=== PATIENT | male | born 1970 | race Hispanic/Latino ===

== ENCOUNTER 2022-02-08 18:02 | Emergency (ER) | payer OTHER ==
--- NOTE | 2022-02-08 11:45 | Emergency Department Report ---
ED Abdominal Pain HPI - General Chief Complaint: Abdominal Pain Stated Complaint: DR CHRISTIANSON Time Seen by Provider: 02/08/22 11:38 Source: patient Mode of arrival: Ambulatory Limitations: No Limitations - History of Present Illness Initial Comments: Patient is a 61-year-old male recently diagnosed with obstructing left kidney stone via outside ultrasound and sent here for further evaluation with CT, labs and admission. - Related Data Allergies Allergy/AdvReac Type Severity Reaction Status Date / Time aspirin Allergy Anaphylaxis Verified 02/08/22 11:22 ED Review of Systems ROS: Stated complaint: DR CHRISTIANSON Other details as noted in HPI Constitutional: denies: chills, fever Respiratory: denies: cough, shortness of breath, wheezing Cardiovascular: denies: chest pain, palpitations Gastrointestinal: denies: abdominal pain, nausea, diarrhea Genitourinary: other (Left flank pain) Musculoskeletal: denies: back pain, joint swelling, arthralgia Skin: as per HPI Neurological: as per HPI Psychiatric: denies: anxiety, depression ED Past Medical Hx - Past Medical History Previous Medical History?: Yes Hx Diabetes: Yes Hx Asthma: Yes - Surgical History Past Surgical History?: No ED Physical Exam - General Limitations: No Limitations General appearance: alert, other (Appears uncomfortable) - Head Head exam: Present: atraumatic, normocephalic - Respiratory Respiratory exam: Present: normal lung sounds bilaterally. Absent: respiratory distress - Cardiovascular Cardiovascular Exam: Present: regular rate, normal rhythm, normal heart sounds - GI/Abdominal GI/Abdominal exam: Present: soft. Absent: distended - Rectal Rectal exam: Present: deferred - Neurological Exam Neurological exam: Present: alert, oriented X3 - Psychiatric Psychiatric exam: Present: normal affect, normal mood - Skin Skin exam: Present: warm, dry, intact, normal color ED Course Vital Signs 02/08/22 02/08/22 02/08/22 11:20 12:19 14:23 Temperature 98.7 F 98.8 F 98.6 F Pulse Rate 82 68 69 Respiratory 18 20 20 Rate Blood Pressure 138/90 Blood Pressure 151/87 138/90 136/95 [Left] O2 Sat by Pulse 99 98 98 Oximetry ED Medical Decision Making - Lab Data Result diagrams: 02/08/22 12:02 02/08/22 12:02 - Medical Decision Making CT scan shows 8.6 mm calculus at the left UVJ with moderate hydronephrosis. Urology paged. Patient taken to the OR. Critical care attestation.: If time is entered above; I have spent that time in minutes in the direct care of this critically ill patient, excluding procedure time. ED Disposition Clinical Impression: Urinary tract obstruction by kidney stone Disposition: 09 ADMITTED INPATIENT Is pt being admited?: Yes Condition: Stable Referrals: REHANA CORNEJO MD [Staff Physician] - 7 Days KATY CALIXTO MD [Primary Care Provider] - 7 Days
--- NOTE | 2022-02-08 12:33 | Cat Scan Report ---
CT ABDOMEN AND PELVIS WITHOUT CONTRAST INDICATION / CLINICAL INFORMATION: Abdominal pain radiating to both sides. TECHNIQUE: All CT scans at this location are performed using CT dose reduction for ALARA by means of automated exposure control. COMPARISON: None available. FINDINGS: ABDOMEN: There is an 8.6 mm ovoid calculus at the left ureteropelvic junction. There is moderate left pelvocaliectasis. Moderate perinephric soft tissue stranding is also present on the left. There are a couple of small nonobstructive right renal calculi. I do not identify a renal mass. There are multiple gallstones, the largest of which measures 2.1 cm. There is a 1.4 cm calculus in th e region of the gallbladder neck. The gallbladder is mildly distended without wall thickening or bile duct dilatation. The liver, spleen, pancreas, adrenal glands and bowel demonstrate no significant abnormality. No maria g opathy is present. There are mild atherosclerotic calcifications involving aorta. The lung bases are clear. PELVIS: The prostate gland is mildly enlarged. The distal ureters, urinary bladder and seminal vesicl es are normal. A normal appendix is present and there is no evidence of diverticulitis. No abnormal m ass or fluid collection is seen. There are small bilateral fat-containing inguinal hernias and a tiny fat-containing right periumbilical hernia without complication. No significant osseous abnormality is present. IMPRESSION: 1. 8.6 mm calculus at the left ureteropelvic pelvic junction is causing moderate hydronephrosis and p erinephric soft tissue stranding. 2. Cholelithiasis. There is a 1.4 cm calculus in the region of the gallbladder neck. The gallbladder is mildly distended without wall thickening. It is difficult to exclude acute cholecystitis. Dependin g on clinical findings, gallbladder ultrasound or hepatobiliary scintigraphy may be helpful in furthe r evaluation. Signer Name: Sage Robb MD Signed: 02/08/2022 12:28 PM Workstation Name: [id number]
[2022-02-08 12:44] LABS: Basophils # (Auto) 0.2 K/mm3 (0.0-0.1); Basophils % (Auto) 1.7 % (0.0-1.8); Eosinophils # (Auto) 0.1 K/mm3 (0.0-0.4); Eosinophils % (Auto) 1.1 % (0.0-4.3); Hematocrit 45.6 % (35.5-45.6); Hemoglobin 15.2 gm/dl (11.8-15.2); Lymphocytes # (Auto) 1.1 K/mm3 (1.2-5.4); Lymphocytes % (Auto) 9.2 % (13.4-35.0); Mean Corpuscular HGB Conc 33 % (32-34); Mean Corpuscular Volume 90 fl (84-94); Monocytes # (Auto) 1.3 K/mm3 (0.0-0.8); Monocytes % (Auto) 10.6 % (0.0-7.3); Platelet Count 159 K/mm3 (140-440); Red Blood Count 5.05 M/mm3 (3.65-5.03); Red Cell Distribution Width 13.6 % (13.2-15.2)
[2022-02-08 13:03] LABS: Alanine Aminotransferase 16 units/L (7-56); Albumin 4.6 g/dL (3.9-5); BUN/Creatinine Ratio 12; Blood Urea Nitrogen 13 mg/dL (9-20); Calcium 9.7 mg/dL (8.4-10.2); Hemolysis Index 3
--- NOTE | 2022-02-08 17:01 | Anesthesia Day of Surgery ---
Anesthesia Day of Surgery - Day of Surgery Patient Examined: Yes Patient H&P Reviewed: Yes Patient is NPO: Yes
--- NOTE | 2022-02-08 17:01 | Anesthesia Consultation ---
Anesthesia Consult and Med Hx Date of service: 02/08/22 - Airway Anesthetic Teeth Evaluation: Good ROM Head & Neck: Adequate Mental/Hyoid Distance: Adequate Mallampati Class: Class I Intubation Access Assessment: Good - Pre-Operative Health Status ASA Pre-Surgery Classification: ASA2 Proposed Anesthetic Plan: General - Pulmonary Hx Smoking: No Hx Asthma: Yes (daily maintenance INHs, rare albuterol use) Hx Respiratory Symptoms: No (nasal polyps) - Cardiovascular System Hx Hypertension: No - Central Nervous System CVA: No - Endocrine Hx Renal Disease: No (left hydronephrosis 2/2 renal calculus, normal renal function) Hx Liver Disease: No Hx Non-Insulin Dependent Diabetes: Yes Hx Thyroid Disease: No - Additional Comments Anesthesia Medical History Comments: Hx anesthetic awareness with "all prior surgeries."
--- NOTE | 2022-02-08 17:10 | Post Operative Note ---
Date of procedure: 02/08/22 Pre-op diagnosis: left upj stone Post-op diagnosis: same Findings: upj stone Procedure: cysto rpg stent Anesthesia: GETA Surgeon: REHANA CORNEJO Estimated blood loss: none Pathology: none Condition: stable Disposition: PACU
--- NOTE | 2022-02-08 17:11 | Discharge Summary ---
Short Stay Discharge Plan Activity: other (no straining ) Weight Bearing Status: Full Weight Bearing Diet: low fat, low cholesterol, low salt Special Instructions: other (inc fluids ) Durable Medical Equipment Needed Upon Discharge: other (has j stent ) Follow up with: KATY CALIXTO MD [Primary Care Provider] - 7 Days REHANA CORNEJO MD [Staff Physician] - 7 Days
[~2022-02-08 18:02] MED LIST: HYDROcodone/ACETAMINOPHEN 5-325 MG TAB PO NR; HYDROmorphone 0.5 MG/0.5 ML INJ IV PRN; IOHEXOL 300 MG/ML 50ML IV ONE; LIDOCAINE MPF (2%) 20 MG/1 ML VIAL 5 ML ONE; MIDAZOLAM 2 MG/2 ML INJ ONE; MORPHINE 4 MG/1 ML INJ IV ONE; ONDANSETRON 4 MG/2 ML INJ IV NR; ONDANSETRON 4 MG/2 ML INJ IV ONE; ONDANSETRON 4 MG/2 ML INJ ONE; PHENYLEPHRINE/NS 1,000 MCG/10 ML SYRINGE (OR USE) IV ONE; SODIUM CHLORIDE 0.9% 1000 ML 1,000 ML IV ONE; SODIUM CHLORIDE 0.9% 1000 ML 1,000 ML ONE; WATER FOR IRRIG STERILE 2000 ML IR ONE; ceFAZolin 1 GM VIAL ONE; fentaNYL 100 MCG/2 ML INJ ONE; propofoL 200 MG/20 ML VIAL IV ONE
--- NOTE | 2022-02-08 18:07 | History and Physical Report ---
History of Present Illness Chief complaint: My side is hurting History of present illness: 51 YO Male with DM, Mild Intermittent Asthma, Nephrolithiasis presents to ED for evaluation. Patient reports "my side hurts". Patient states he has experienced left flank pain over the past 2 days with persistent and worsening symptoms over the same timeframe. Patient was seen and evaluated by his urologist and underwent ultrasound which revealed a left-sided kidney stone. Patient transported to [facility] via private vehicle for further care and evaluation of the aforementioned symptoms. The patient was seen and evaluated in the emergency department. All lab and imaging studies reviewed. Patient with CT scan of the abdomen pelvis which revealed obstructive uropathy complicated by hydronephrosis as well as intractable nausea and vomiting. Urology team consulted in ED. Patient taken urgently to operating room for surgical intervention. Patient knowledges nausea, multiple episodes of vomiting. Patient denies fever, chills, chest pain, palpitation, adductive cough, skin rash, recent contact, known exposure to COVID-19. No prior admission for review. No medication listed at time of admission for reconciliation. Advanced care planning conducted in E. Past History Past Medical History: diabetes, hypertension, other (See HPI) Past Surgical History: No surgical history, Other (Reviewed) Social history: . denies: smoking, alcohol abuse, prescription drug abuse Family history: hypertension Medications and Allergies Allergies Allergy/AdvReac Type Severity Reaction Status Date / Time aspirin Allergy Anaphylaxis Verified 02/08/22 11:22 Active Meds: Active Medications Hydrocodone Bitart/Acetaminophen (Hydrocodone/Acetaminophen 5-325 Mg Tab) 2 each PO ONCE NR Stop: 02/08/22 22:00 Hydromorphone HCl (Hydromorphone 0.5 Mg/0.5 Ml Inj) 0.5 mg IV Q10MIN PRN PRN Reason: Pain , Severe (7-10) Ondansetron HCl (Ondansetron 4 Mg/2 Ml Inj) 4 mg IV ONCE NR Stop: 02/08/22 23:59 Review of Systems Constitutional: no weight loss, no weight gain, no fever, no chills Ears, nose, mouth and throat: no ear pain, no tinnitis, no decreased hearing, no nose pain, no nasal congestion Cardiovascular: no chest pain, no palpitations, no rapid/irregular heart beat, no edema Respiratory: no cough, no excessive sputum, no hemoptysis Gastrointestinal: nausea Genitourinary Male: flank pain, no dysuria, no hematuria Rectal: no pain, no incontinence, no bleeding Musculoskeletal: no neck pain, no low back pain, no shooting leg pain, no leg numbness/tingling Integumentary: no rash, no pruritis, no sores, no jaundice, no boils Neurological: no head injury, no weakness, no parathesias, no numbness, no seizures, no tremors Psychiatric: no anxiety, no change in sleep habits, no insomnia, no change in libido, no suicidal ideation Endocrine: no cold intolerance, no polyphagia, no polydipsia, no polyuria, no nocturia Hematologic/Lymphatic: no easy bruising, no easy bleeding Allergic/Immunologic: no urticaria, no allergic rhinitis, no wheezing Exam - Constitutional Vitals: Temp Pulse Resp BP Pulse Ox 98.6 F 69 20 136/95 98 02/08/22 14:23 02/08/22 14:23 02/08/22 14:23 02/08/22 14:23 02/08/22 14:23 General appearance: Present: mild distress - EENT Eyes: Present: PERRL ENT: hearing intact, clear oral mucosa - Neck Neck: Present: supple, normal ROM - Respiratory Respiratory effort: normal Respiratory: bilateral: CTA - Cardiovascular Heart Sounds: Present: S1 & S2. Absent: rub, click - Extremities Extremities: pulses symmetrical, No edema Peripheral Pulses: within normal limits - Abdominal General gastrointestinal: Present: soft, non-tender, non-distended, normal bowel sounds Male genitourinary: Present: normal - Integumentary Integumentary: Present: clear, warm, dry - Musculoskeletal Musculoskeletal: gait normal, strength equal bilaterally - Psychiatric Psychiatric: appropriate mood/affect, intact judgment & insight - Neurologic Neurologic: CNII-XII intact, moves all extremities Results - Labs CBC & Chem 7: 02/08/22 12:02 02/08/22 12:02 Labs: Abnormal lab results 02/08/22 02/08/22 Range/Units 12:02 12:02 WBC 12.3 H (4.5-11.0) K/mm3 RBC 5.05 H (3.65-5.03) M/mm3 Lymph % (Auto) 9.2 L (13.4-35.0) % [place] % (Auto) 10.6 H (0.0-7.3) % Lymph # (Auto) 1.1 L (1.2-5.4) K/mm3 [place] # (Auto) 1.3 H (0.0-0.8) K/mm3 Baso # (Auto) 0.2 H (0.0-0.1) K/mm3 Seg Neutrophils % 77.4 H (40.0-70.0) % Seg Neutrophils # 9.5 H (1.8-7.7) K/mm3 Glucose 144 H (75-100) mg/dL Assessment and Plan - Patient Problems (1) Urinary tract obstruction by kidney stone Current Visit: Yes Status: Acute Plan to address problem: Urology team consulted, CT scan abdomen pelvis, patient pending surgical intervention, pain control, supportive care, antiemetic therapy, IV fluid resuscitation therapy. (2) Hydronephrosis Current Visit: Yes Status: Acute Qualifiers: Hydronephrosis type: with renal calculous obstruction Qualified Code(s): N1 3.2 - Hydronephrosis with renal and ureteral calculous obstruction Plan to address problem: Urology team consulted. Patient pending surgical intervention as per urology t eam, supportive care, pain control. (3) Intractable nausea and vomiting Current Visit: Yes Status: Acute Plan to address problem: Antiemetic therapy, supportive care, bowel rest. (4) Hypertension Current Visit: Yes Status: Acute Qualifiers: Hypertension type: primary hypertension Qualified Code(s): I10 - Essential (primary) hypertension Plan to address problem: Monitor blood pressure every shift, continue medical management. (5) Mild intermittent asthma Current Visit: Yes Status: Acute Qualifiers: Asthma complication type: uncomplicated Qualified Code(s): J45.20 - Mild intermittent asthma, uncomplicated Plan to address problem: No acute exacerbation at this time, nebulized therapy as clinically indicated, supportive care. (6) DVT prophylaxis Current Visit: Yes Status: Acute Plan to address problem: SCD to bilateral lower extremities while in bed (7) Advance care planning Current Visit: Yes Status: Acute Plan to address problem: Disease education done, care plan discussed, diagnosis discussed, prognosis discussed, patient is full code. Patient knowledges understanding and agreement with care plan, +30 minutes. (8) Preventative health care Current Visit: Yes Status: Acute Plan to address problem: Patient counseled regarding risk factor reduction, outpatient follow-up with primary care physician for all age and risk factor appropriate screening test. +30 minutes.
[2022-02-08] MEDS ORDERED: ACETAMINOPHEN 325 MG TAB PO PRN (18:08)
[2022-02-08] MEDS ORDERED: ONDANSETRON 4 MG/2 ML INJ IV PRN (18:08)
[2022-02-08] MEDS ORDERED: ALBUTEROL 2.5 MG/3 ML NEBU IH PRN (18:08)
[2022-02-08] MEDS ORDERED: HYDROmorphone 0.5 MG/0.5 ML INJ IV PRN (18:08)
[2022-02-08] MEDS ORDERED: oxyCODONE /ACETAMINOPHEN 5-325MG TAB PO PRN (18:08)
[2022-02-08] MEDS ORDERED: SODIUM CHLORIDE 0.9% 1000 ML 1,000 ML IV SCH (18:15)
--- NOTE | 2022-02-08 18:53 | Operative Report ---
DATE OF SURGERY: 02/08/2022 PREOPERATIVE DIAGNOSES: Severe left flank pain, left ureteropelvic junction stone, severe agonizing pain. POSTOPERATIVE DIAGNOSES: Severe left flank pain, left ureteropelvic junction stone, severe agonizing pain. PROCEDURES: Cystoscopy, RPG, left double-J stent, transposition of stone into the kidney. SURGEON: Dr. Paramjit Handley. ANESTHESIA: General. FINDINGS: This is a gentleman who presented with severe pain. He was sent to the Emergency Room. He now presents for treatment. DESCRIPTION OF PROCEDURE: The patient was brought to operating room and placed on the operating table. Following induction of anesthesia, placed in lithotomy position, prepped and draped in usual sterile fashion. Cystourethroscopy showed bladder lesions. Retrograde showed mild hydronephrosis. A distal ureter drain, wire coiled in the kidney, looked like the stone popped into the kidney and a double-J 6 x 26 coiled in the kidney and bladder. The patient tolerated the procedure well and brought to recovery in stable condition. He also has gallstones. Family notified. TID: [id number] RECEIPT: [id number] ALONZO/REY
--- NOTE | 2022-02-08 19:09 | Post Anesthesia Evaluation ---
- Post Anesthesia Evaluation Patient Participated: Yes Airway Patent: Yes Stable Respiratory Function: Yes Nausea/Vomiting: No Temp > 96.8F: Yes Pain Manageable: Yes Adequeate Hydration: Yes Anesthesia Complications: No
--- NOTE | 2022-02-08 20:20 | Fluoroscopy Report ---
INTRAOPERATIVE FLUOROSCOPY INDICATION / CLINICAL INFORMATION: LEFT KIDNEY STONE.. TECHNIQUE: Intraoperative spot images were obtained during the procedure. FINDINGS: Intraoperative fluoroscopy images. See operative/procedure note by performing physician for full details. Fluoroscopy Time: 0.4 minutes. Fluoroscopy Images: 3. Signer Name: Roel Cervantes MD Signed: 02/08/2022 8:15 PM Workstation Name: [id number]
[2022-02-08 20:52] VITALS: BP 120/79
== END 2022-02-08 19:35 | disposition home or self-care (01) ==
LOC: OR 18:02
DX: N13.2 Hydronephrosis with renal and ureteral calculous obstruction (principal); E11.9 Type 2 diabetes mellitus without complications; J45.909 Unspecified asthma, uncomplicated; Z88.6 Allergy status to analgesic agent
CPT/HCPCS: 36415; 52332; 74176; 74420; 80053; 85025; 96361; 96374; 96375; 99284; C1769; C2617; J0690; J2250; J2270; J2370; J2405; J2704; J3010; J7030; Q9967